=== PATIENT | male | born 1950 | race Caucasian/White ===

== ENCOUNTER 2016-09-08 11:38 | Day surgery (SDC) | payer OTHER ==
[~2016-09-08] VITALS: Ht 165.1 cm; Wt 70.9 kg
[~2016-09-08 11:38] MED LIST: AMOX1TAB10 PO
[2016-09-08 12:26] VITALS: Ht 165.1 cm; Wt 70.9 kg
[2016-09-08] MEDS ORDERED: AMLO-218 PO (12:36)
[2016-09-08] MEDS ORDERED: TRHC5025 PO (12:36)
[2016-09-08 13:36] VITALS: BP 134/90; PULSE 78; RESP 12
[2016-09-08] MEDS ORDERED: FENTAnyl 50 MCG/ML VIAL ONE (14:07)
[2016-09-08] MEDS ORDERED: MIDAZOLAM 1 MG/ML 2 ML INJ ONE ×2 (14:07)
[2016-09-08 14:25] VITALS: BP 114/65; RESP 18
--- NOTE | 2016-09-08 14:31 | GILP ---
DATE OF PROCEDURE: NAME OF PROCEDURE: Colonoscopy. SURGEON: Kasi Ames MD PREOPERATIVE DIAGNOSIS: Screening colonoscopy. POSTOPERATIVE DIAGNOSES 1. Colonoscopy all the way to the cecum. 2. Internal hemorrhoids. 3. No colon neoplasm was identified. INDICATION FOR THE PROCEDURE: Mr. Tanner Benavides is a 66-year-old male patient who was scheduled for screening colonoscopy. The procedure and possible complications are well explained to the patient. The patient understood and consented to the procedure. DESCRIPTION OF PROCEDURE: Under the influence of fentanyl and Versed, the colonoscope was carefully introduced in the rectum and under direct vision, it was advanced all the way to the cecum. FINDINGS: The patient had internal hemorrhoids. No colon neoplasm was identified. He tolerated the procedure very well and there was no complication from the procedure. At the end o f the procedure, he was awake with stable vital signs and he was discharged home to the care of his family. IMPRESSION: 1. Colonoscopy all the way to the cecum. 2. Internal hemorrhoids. 3. No colon neoplasm was identified. PLAN: Next screening colonoscopy in 10 years. Dictated By: KASI CUTLER/REKHA Conf#: [id number] DID#: [id number]
== END 2016-09-08 15:40 | disposition home or self-care (01) ==
LOC: GIL 11:38
PROVIDERS: ATTEND Internal Medicine Gastroenterology
DX: Z12.11 Encounter for screening for malignant neoplasm of colon (principal); K64.8 Other hemorrhoids; I10 Essential (primary) hypertension
CPT/HCPCS: 45378; J2250; J3010